=== PATIENT | female | born 1995 | race Caucasian/White ===

== ENCOUNTER 2019-11-14 06:32 | Inpatient (IN) | payer MEDICAID, SELFPAY ==
[2019-11-14 08:22] LABS: HGB 11.6 g/dL (11.2-15.7); MCH 29.6 pg (27.0-33.0); MCHC 34.1 % (32.0-36.0); MCV 86.7 fL (80-95); MPV 11.2 fL (8.0-11.0); Platelet Count 253 10^3/uL (130-400); RBC 3.92 10^6/uL (3.93-5.22); RDW 13.2 % (11.7-14.6); RDW-SD 41.7 fL; WBC 13.92 10^3/uL (4.4-10.8)
[2019-11-14 08:39] LABS: COMMENT (LAB VIEW ONLY) 151.99 mg/dL; PROTEIN 21.7 mg/dL; Prot/Crea Ur Ratio 0.14
[2019-11-14 08:45] LABS: ALT 8 U/L (14-59); AST 13 U/L (15-37); Alkaline Phosphatase 187 U/L (46-116); Anion Gap 13.3 mmol/L (3-11); BUN 5 mg/dL (7-18); Bilirubin, Total 0.5 mg/dL (0.2-1.0); CO2 20.7 mmol/L (21.0-32.0); CREATININE 0.57 mg/dL (0.55-1.02); Calcium 9.6 mg/dL (8.5-10.1); Chloride 102 mmol/L (98-107); Glucose 91 mg/dL (74-106); Potassium 3.4 mmol/L (3.5-5.1); Sodium 136 mmol/L (136-145); Uric Acid 4.5 mg/dL (2.6-6.0)
[2019-11-14] MEDS: Lidocaine 1% Multi-Dose 20 ML VIAL IJ (10:55)
[2019-11-14] MEDS: Oxytocin 10 UNITS/ML VIAL IM (10:55)
[2019-11-14] MEDS: Oxytocin/Normal Saline 30 UNITS/500 ML BAG 499 UNITS IV (12:00)
[2019-11-14] MEDS: Normal Saline Flush 10 ML SYR IVP (12:06)
[2019-11-14] MEDS: Hamamelis Leaf/Glycerin 100 EACH BOX PR (12:06)
[2019-11-14] MEDS: Oxytocin/Normal Saline 30 UNITS/500 ML BAG 95 UNITS IV ×2 (13:32→18:59)
[2019-11-15] MEDS: Oxytocin/Normal Saline 30 UNITS/500 ML BAG 95 UNITS IV (00:05)
[2019-11-15] MEDS: Ibuprofen 600 MG TAB PO ×2 (00:18→09:57)
[2019-11-15] MEDS: Acetaminophen 325 MG TAB 650 MG PO (09:58)
--- NOTE | 2019-11-15 10:03 | W.PM.DS.N ---
Date of service: 11/15/19 Time of Service: 10:03 DS: Diagnosis Discharge Diagnosis (1) Vaginal delivery: Status: Acute Discharge Plan Disposition Patient Disposition: HOME Condition: Good Discharge Details Reason For Visit: RULE OUT LABOR Admit Date/Time: 11/14/19 08:30 Admit Provider: Juliet Galvez Attending Provider: Juliet Galvez Primary Care Provider: None,None Hospital Course Hospital Course: Patient was admitted to the center at 40 weeks 1 day estimated stational age in early active labor. Her blood pressure on admission 140s over 90s. LFTs uric acid were normal. She had a unremarkable liver and a spontaneous vaginal delivery over intact perineum of a viable male weighing 8 pounds 6 ounces with Apgars of 8/9. He will be named King. She experienced mild uterine atony which responded to fundal massage evacuation of clots at the cervix and continuous infusion of IV oxytocin for 18 hours after delivery. She was discharged home on day 1 formula feeding with plans for a telemedicine or in office visit in approximately 2 weeks. Discharge medications will include xswy-cil-ndvsvqs ibuprofen 600 mg every 6 hours. Home Meds and New Rx's Prescriptions: No Action prenat.vits,jordin,ezq-oyku-vrlfh Tablet 1 tab PO DAILY RF: 0 ferrous sulfate 142 mg (45 mg iron) tablet extended release 142 mg PO DAILY RF: 0 Discharge Instructions Additional Instructions: Call [facility] office to make a follow-up appointment with Dr. Galvez for 2 weeks. You may have a telemedicine visit if it is more convenient for you. Take ibuprofen oidh-egt-nlfyhib tablets 600 mg every 6 hours for pain in addition to acetaminophen (Tylenol) 650 mg every 6 hours as needed. Stand Alone Forms: BC Post Vaginal Deliver Activity:: Activity as Tolerated Equipment/Supplies:: No Equipment Needed Diet:: As Tolerated Discharge Orders Discharge Orders: Discharge Order (Routine); Ordered 11/15/19 Ordered By: Juliet Galvez DS: Summary Status at Discharge Functional status at discharge: independent ambulation Overall status at discharge: patient is back to baseline Mental Status: mental status grossly normal Speech and Movement: speech and movement normal Mood: congruent mood Affect: normal affect Exam Psych Mental Status: mental status grossly normal Speech and Movement: speech and movement normal Mood: congruent mood Affect: normal affect DS: Data Vitals/I&O Vitals and I&O: Vital Signs Pain Level 5 11/15/19 09:58 Intake & Output 11/14/19 11/14/19 11/15/19 11:59 23:59 11:59 Intake Total 1000 / 1000 Balance 1000 / 1000 Weight 166 lb Intake: IV 1000 / 1000 [facility] Medical History (Updated 11/15/19 @ 10:04 by Juliet Galvez MD) Vaginal delivery (Acute) 11/14/2019 . M. 8 LB 60Z. King Social History (Updated 11/15/19 @ 10:05 by Juliet Galvez MD) Smoking/Tobacco Use Status: Never Household members: significant other and other Details: Rosey. Number of Children: 1 current occupation: Unemployed History History 1 Para 1 Hx # Term Pregnancies 1 Multiple births Hx # Pregnancies Ectopic pregnancies AB induced Hx Number of Living Children 1 AB spontaneous
[2019-11-15 12:07] LABS: COVID-19 RT-PCR UVMMC Result Negative (Negative)
== END 2019-11-15 14:30 | disposition home or self-care (01) | DRG 806 ==
PROVIDERS: Admitting Provider Obstetrics & Gynecology Gynecology; Visit Provider Obstetrics & Gynecology Gynecology
DX: O77.0 Labor and delivery complicated by meconium in amniotic fluid (principal); O72.1 Other immediate postpartum hemorrhage; Z37.0 Single live birth; Z3A.40 40 weeks gestation of pregnancy; O70.0 First degree perineal laceration during delivery; Z67.40 Type O blood, Rh positive
CPT/HCPCS: 80053; 85027; 86850; 86900; 86901; NC; U0003; 82565; 84156; 84550; G0378; J2590

== ENCOUNTER 2020-12-07 17:01 | Outpatient (REF) | payer MEDICAID, SELFPAY ==
[2020-12-09 14:33] LABS: Chlamydia Result Negative (Negative); GC Result Negative (Negative)
== END 2020-12-07 17:02 | disposition home or self-care (01) ==
LOC: LBN 17:01
PROVIDERS: Visit Provider Obstetrics & Gynecology
DX: Z11.3 Encounter for screening for infections with a predominantly sexual mode of transmission (principal)
CPT/HCPCS: 87491; 87591

== ENCOUNTER 2020-12-08 03:31 | Outpatient (CLI) | payer MEDICAID, SELFPAY ==
[2020-12-09 10:49] LABS: HIV-1/2 Ag & Ab Screen Negative (Negative)
[2020-12-09 11:05] LABS: Hepatitis C Ab w Rflx HCV PCR Negative (Negative)
[2020-12-09 12:18] LABS: Syphilis Serology (RPR) Negative (Negative)
== END 2020-12-08 03:32 | disposition home or self-care (01) ==
LOC: LBO 03:31
PROVIDERS: Visit Provider Obstetrics & Gynecology
DX: Z11.3 Encounter for screening for infections with a predominantly sexual mode of transmission (principal); Z11.4 Encounter for screening for human immunodeficiency virus [HIV]; Z11.59 Encounter for screening for other viral diseases
CPT/HCPCS: 36415; 86803; 87389; 86592

== ENCOUNTER 2021-01-11 08:54 | Emergency (ER) | payer MEDICAID, SELFPAY ==
[2021-01-11 09:02] VITALS: BP 140/85; PULSE 90; RESP 16; TEMP 36.3; O2SAT 100
--- NOTE | 2021-01-11 09:22 | ED.GENADUL_ITS ---
Discharge Plan Disposition Patient Disposition: HOME Condition: Improving Discharge Details Clinical Impression: UTI (urinary tract infection) Primary Care Provider: None,None ED Provider: Hamilton Griffin Home Meds and New Rx's Prescriptions: New sulfamethoxazole-trimethoprim [Bactrim DS] 800-160 mg tablet 1 tab PO BID 7 Days Qty: 14 RF: 0 Continued desogestrel-ethinyl estradiol [Apri] 0.15-0.03 mg tablet 1 tab PO DAILY Qty: 84 RF: 4 Discharge Instructions Instructions: Urinary Tract Infection in Women (ED) Additional Instructions: Please begin antibiotics today. They were electronically sent to the pharmacy at [facility] 1 day off work. Small, frequent sips of fluids to maintain hydration. Return to the ER for any acute concerns. Stand Alone Forms: Work Release Medical Decision Making 25-year-old female who had COVID-19 with a dry cough, body ache, fever and chills 2 weeks ago. Sharon she got better. Now here with days of low back pain, generalized fatigue, sore throat, frontal sinus pain and pressure. She is afebrile, well-appearing with unremarkable exam. Would note mild erythema over tonsillar pillars. Consider UTI, strep pharyngitis, persistent/long-haul COVID-19. Patient underwent urinalysis and rapid strep test. Rapid strep test is negative. Urinalysis positive for leuk esterase and microscopic sample with numerous red blood cells and bacteria, squamous cells also present and contamination not excluded. Given low back pain and probable UTI will treat with a course of antibiotics. Discussed with her that many of her symptoms may be persistent COVID-19 related. She is stable and appropriate for discharge to home. HPI General Mode of arrival: ambulatory . Date/Time Provider Initiated Documentation: 01/11/21 08:56 . Limitations to Documentation: no limitations . Information obtained by: patient . History of Present Illness 25 year old F presents to the emergency department with the chief complaint of Recent Covid, now with a number of concerns, described as moderate, Quality is described as dull, and is localized to the back, left and right. Patient reports no radiation. Patient started experiencing this day(s) and it has been intermittent. No relieving factors improve symptom(s), No exacerbating factors reported . Patient notes cough and other (Sinus pressure, loose stool, mild sore throat, body ache, fatigue); denies shortness of breath and syncope. Related Data Home Medications Medication Instructions Recorded Confirmed desogestrel 0.15 mg-ethinyl 1 tab PO DAILY #84 tab 12/07/20 01/11/21 estradiol 0.03 mg tablet sulfamethoxazole-trimethoprim 1 tab PO BID 7 Days #14 tab 01/11/21 [Bactrim DS] Previous Rx's Medication Instructions Recorded desogestrel 0.15 mg-ethinyl 1 tab PO DAILY #84 tab 12/07/20 estradiol 0.03 mg tablet sulfamethoxazole-trimethoprim 1 tab PO BID 7 Days #14 tab 01/11/21 [Bactrim DS] Allergies Allergy/AdvReac Type Severity Reaction Status Date / Time apple AdvReac Intermediate Headache Unverified 01/11/21 09:08 Pork/Porcine Containing AdvReac Intermediate Diarrhea Unverified 01/11/21 09:08 Products General Stated Complaint: GenMedical SLOAN: 3 Review of Systems Narrative: 8 systems reviewed and otherwise negative. [facility] Medical History Vaginal delivery 11/14/2019 . M. 8 LB 60Z. King Surgical History (Updated 12/07/20 @ 15:07 by Lissa Lima MD) Status post excision of fibroadenoma of breast Family History Mother Depression Social History Smoking/Tobacco Use Status: Never Smoking risk assessment performed?: Yes Alcohol Intake: current Alcohol Intake frequency: holidays/special occasions o nly Drug use: Never Substance use type: does not use Household members: children and other Details: mom and sister Number of Children: 1 current occupation: Unemployed Do you think of yourself as: bisexual What type of physical activity do you participate in: walking Duration: 30-45 minutes/day Frequency: daily Female Reproductive History Menstrual Age of Menarche: 11 Duration of menses: <3 days control method: pills History History 1 Para 1 Hx # Term Pregnancies 1 Multiple births Hx # Pregnancies Ectopic pregnancies AB induced Hx Number of Living Children 1 AB spontaneous Past Pregnancies Del. Date GA/Weeks # Outcome Route Wgt Sex Labor Lgth Anesthes ia Location Prov Complic 11/14/19 40 No Successful vaginal 3798.836 g Male 4 A. O'Shaw other Delivery Date: 11/14/19 Fetus presented in OP position with spontaneous resolution to OA and uncomplicated delivery. Light meconium present in amniotic fluid-- bulb suctioned after delivery. Superficial abrasions with repair with 3-0 vicryl/lidocaine. Increased bleeding noted after placental delivery--treated with oxytocin. Fitch,Rabia Exam Narrative Exam Narrative: GEN: awake, alert, oriented 3. Pleasant, well groomed, interactive. HEAD: Normocephalic, atraumatic ENT: Mucous membranes moist, oropharynx mildly erythematous on the tonsillar pillar right greater than left, tympanic membrane slightly distended, mild frontal sinus tenderness to percussion, External ear exam unremarkable EYES: PERRL, EOMI NECK: Full ROM, no [place], no menigismus CHEST/RESP: Nontender, clear to auscultation bilateral, no wheeze/rhonchi/rales CARDIOVASCULAR: RRR, no murmur, rub brandon. 2+ Rad pulse bilateral Back, nontender, no step-off or deformity. ABDOMEN: Soft, nontender, no mass. +Bowel sounds EXT: Full ROM, no edema, no rash. Hips freely mobile Neuro: Grossly normal neurologic exam, conversant, interactive. Psych: Speech fluent, thoughts congruent, affect normal Course Vital Signs Vital signs: Vital Signs Temperature 36.3 C L 01/11/21 09:02 Pulse 90 01/11/21 09:02 Respiratory Rate 16 01/11/21 09:02 Blood Pressure 140/85 01/11/21 09:02 Pulse Oximetry 100 01/11/21 09:02 Temperature 36.3 C L 01/11/21 09:02 Temperature Source Skin 01/11/21 09:02 Pulse 90 01/11/21 09:02 Respiratory Rate 16 01/11/21 09:02 Respiratory Effort Non-Labored 01/11/21 09:02 Blood Pressure 140/85 01/11/21 09:02 Blood Pressure Position Sitting 01/11/21 09:02 Pulse Oximetry 100 01/11/21 09:02 Oxygen Delivery Method Room Air 01/11/21 09:02 Oxygen Flow Rate 0 01/11/21 09:02 Pain Level 7 01/11/21 09:02
[2021-01-11 09:50] LABS: Bilirubin Negative (Negative); Blood Negative (Negative); Clarity Sl Cloudy (Clear); Glucose Negative (Negative); Ketones Negative (Negative); Leukocyte Esterase Moderate (Negative); Nitrite Negative (Negative); Urobilinogen 0.2 EU/dL (Up TO 0.2)
[2021-01-11 09:57] LABS: Bacteria Many HPF (Negative); C & S Indicated? No/Sq. Contamination; Casts Negative LPF (Negative); Crystals Negative HPF (Negative); Epithelial Cells Many HPF (Negative); Mucus Trace (Negative); RBC 0-2 HPF (0-2); WBC 20-50 HPF (0-5)
== END 2021-01-11 10:06 | disposition home or self-care (01) ==
PROVIDERS: Emergency Provider Emergency Medicine
DX: N39.0 Urinary tract infection, site not specified (principal); J02.9 Acute pharyngitis, unspecified; Z86.16 Personal history of COVID-19; R53.83 Other fatigue
CPT/HCPCS: 81025; 87880; 99283; 81003; 81015; 87081

== ENCOUNTER 2021-02-06 14:28 | Outpatient (REF) | payer MEDICAID, SELFPAY | END 2021-02-06 14:29 | disposition home or self-care (01) | LOC: LBN 14:28 | PROVIDERS: Visit Provider Physician Assistant | DX: R10.84 Generalized abdominal pain (principal) | CPT/HCPCS: 87077; 87086; 87186 ==

== ENCOUNTER 2021-02-06 22:14 | Outpatient (CLI) | payer MEDICAID, SELFPAY ==
--- NOTE | 2021-02-06 | DI.CT_ITS ---
Exam(s) CT RENAL COLIC WO EXAM: CT RENAL COLIC WO CLINICAL HISTORY: FLANK PAIN R10.9. TECHNIQUE: Imaging Protocol: Axial computed tomography images with coronal and sagittal reformatted images were created and reviewed CONTRAST MATERIAL: Intravenous: none Oral: None COMPARISON: No exams were available for comparison FINDINGS: VISUALIZED LUNG BASES: Small area of subtle subpleural infiltrate in the right lower lobe (series 2/i mage 8). ABDOMEN: There is no ascites. LIVER: There are no obvious focal hepatic lesions evident of this noninfused study. GALLBLADDER/BILIARY: No obvious gallbladder pathology. CBD is not dilated. PANCREAS: No evidence of pancreatic mass nor dilatation of the pancreatic duct. SPLEEN: Spleen is not enlarged. No obvious intrasplenic lesions. ADRENALS: There are no significant adrenal masses. KIDNEYS:No cysts evident. No solid renal masses. No calculi nor hydronephrosis. . ABDOMINAL AORTA: Abdominal aorta is not enlarged. LYMPH NODES: There is no retroperitoneal nor paraaortic adenopathy. ABDOMINAL WALL: No evidence of significant anterior abdominal wall nor inguinal hernia. Umbilical or nament noted. GI: There is no evidence of bowel obstruction, free air, nor abscess. PELVIS: LYMPH NODES: There is no intrapelvic nor inguinal adenopathy. GI: No evidence of appendicitis.No evidence of sigmoid diverticulitis. URINARY BLADDER: No calculi nor obvious masses evident REPRODUCTIVE: Uterus and adnexal regions appear age-appropriate. Air column consistent with tampon i s present in the vagina. OSSEOUS: No significant osseous lesions. IMPRESSION: 1. No evidence of urinary tract calculi. No hydronephrosis. No hydroureter. No calculi in the nond istended urinary bladder 2. No other significant findings. 3. Tampon noted in place RADIATION DOSE DELIVERED: 755.16mGy.cm Total DLP DATA REPOSITORY: All CT scans at this facility are submitted to the National Radiology Data Registry (NRDR) Dose Index Registry (DIR) with the [employer] (ACR). RADIATION OPTIMIZATION: All CT scans at this facility use at least one of these dose optimization te chniques: automated exposure control; mA and/or kV adjustment per patient size (includes targeted exa ms where dose is matched to clinical indication); or iterative reconstruction.
== END 2021-02-06 22:34 ==
PROVIDERS: Visit Provider Physician Assistant
DX: R10.84 Generalized abdominal pain (principal)
CPT/HCPCS: 74176

== ENCOUNTER 2021-08-02 14:27 | Emergency (ER) | payer MEDICAID, SELFPAY ==
[2021-08-02 14:31] VITALS: BP 162/100; PULSE 83; RESP 17; TEMP 36.5; O2SAT 98
--- NOTE | 2021-08-02 15:02 | ED.GENADUL_ITS ---
Discharge Plan Disposition Patient Disposition: HOME Condition: Stable Discharge Details Clinical Impression: Pharyngitis Primary Care Provider: None,None ED Provider: Vinnie Rubio Home Meds and New Rx's Prescriptions: Continued desogestrel-ethinyl estradiol [Apri] 0.15-0.03 mg tablet 1 tab PO DAILY Qty: 84 4RF escitalopram oxalate 20 mg tablet 20 mg PO DAILY 0RF Label Comments: TAKE 1/2 TABLET ORALLY DAILY FOR 6 DAYS THEN 1 TABLET DAILY Discharge Instructions Instructions: Pharyngitis (ED) Additional Instructions: Rapid strep is negative. Both strep culture and COVID are pending. I do recommend quarantining until your COVID test has resulted negative hopefully in the next 36-48 hours. Plenty of fluids to avoid dehydration. Ccnn-sga-kwdmqrh Tylenol and/or Motrin as directed for discomfort. Chloraseptic spray as directed for discomfort. Please watch for new or worsening symptoms and return to the ER for any concerns. Lastly, I do recommend outpatient follow-up with your primary care provider if symptoms not resolving in the next 3-5 days. Medical Decision Making 26-year-old female presents for sore throat over the past 2 days, specifically concerned for strep throat. She states that her son at home has a viral syndrome. She has taken ysee-wbg-eafjdxn medication with some relief. Otherwise she has no acute concerns or complaints. Clinically she appears well, nontoxic. She is afebrile, no obvious lymphadenopathy. Airway is patent. Will obtain rapid strep and COVID Rapid strep is negative. Strep culture and COVID pending. Discussed results with patient. We discussed ogjl-akr-merlkwe medications for symptomatic control. Standard discharge and return precautions were provided. Patient understands, is agreeable to this plan, and has no additional questions or concerns upon discharge. This documentation was generated using Siriation system, please disregard any oddities of phrase or misspellings. Medical Records Medical records reviewed: Yes I reviewed the patient's medical records. Lab Data Lab results reviewed: Yes I reviewed the patient's lab results. Labs: 08/02/21 14:36 Pharynx Group A Streptococcus Culture - Pending HPI General Mode of arrival: ambulatory . Date/Time Provider Initiated Documentation: 08/02/21 14:37 . Limitations to Documentation: no limitations . Information obtained by: patient . History of Present Illness 26 year old F presents to the emergency department with the chief complaint of sore throat, described as mild, with intensity rated at 3. Quality is described as aching, and is localized to the neck (throat). Patient reports no radiation. Patient started experiencing this day(s) (2) and it has been constant. improves with No relieving factors improve symptom(s), Patient notes no other symptoms.. Patient did receive the following treatments prior to arrival, NS AID Related Data Home Medications Medication Instructions Recorded Confirmed desogestrel 0.15 mg-ethinyl 1 tab PO DAILY #84 tab 12/07/20 08/02/21 estradiol 0.03 mg tablet (Apri) escitalopram oxalate 20 mg tablet 20 mg PO DAILY 08/02/21 08/02/21 Previous Rx's Medication Instructions Recorded desogestrel 0.15 mg-ethinyl 1 tab PO DAILY #84 tab 12/07/20 estradiol 0.03 mg tablet (Apri) Allergies Allergy/AdvReac Type Severity Reaction Status Date / Time apple AdvReac Intermediate Headache Unverified 08/02/21 14:38 Pork/Porcine Containing AdvReac Intermediate Diarrhea Unverified 08/02/21 14:38 Products General Stated Complaint: GenMedical SLOAN: 4 Review of Systems Constitutional Constitutional: Denies fever(s) and Denies headache(s) ENT Ears, Nose, Mouth, and Throat: Denies headache(s) and Reports sore throat Cardiovascular Cardiovascular: Denies chest pain and Denies dyspnea Respiratory Respiratory: Denies cough and Denies dyspnea Gastrointestinal Gastrointestinal: Denies abdominal pain, Denies nausea and Denies vomiting Integumentary/Breasts Skin/Breast: Denies rash Neurologic Neurologic: Denies headache(s) [facility] All Active Problems (Updated 08/02/21 @ 15:24 by ERICKA Lockett) UTI (urinary tract infection) (Acute) Pharyngitis (Acute) Evaluation regarding contraception options (Acute) Encounter for annual routine gynecological examination (Acute) Routine screening for STI (sexually transmitted infection) (Acute) Status post excision of fibroadenoma of breast (Acute) Contact dermatitis (Acute) Vulvar edema (Acute) Contraception (Acute) Vaginal delivery (Acute) 11/14/2019 . M. 8 LB 60Z. King Family History Mother Depression Social History Smoking/Tobacco Use Status: Never Smoking risk assessment performed?: Yes Alcohol Intake: current Alcohol Intake frequency: holidays/special occasions only Drug use: Never Substance use type: does not use Household members: children and other Details: mom and sister Number of Children: 1 current occupation: Unemployed Do you think of yourself as: bisexual What type of physical activity do you participate in: walking Duration: 30-45 minutes/day Frequency: daily Do you feel safe at home: Yes Female Reproductive History Menstrual Age of Menarche: 11 Duration of menses: <3 days control method: pills History History 1 Para 1 Hx # Term Pregnancies 1 Multiple births Hx # Pregnancies Ectopic pregnancies AB induced Hx Number of Living Children 1 AB spontaneous Past Pregnancies Del. Date GA/Weeks # Outcome Route Wgt Sex Labor Lgth Anesthes ia Location Prov Complic 11/14/19 40 No Successful vaginal 3798.836 g Male 4 A. O'Shaw other Delivery Date: 11/14/19 Last Updated by: Rabia Fitch RN Fetus presented in OP position with spontaneous resolution to OA and uncomplicated delivery. Light meconium present in amniotic fluid--infant bulb suctioned after delivery. Superficial abrasions with repair with 3-0 vicryl/lidocaine. Increased bleeding noted after placental delivery--treated with oxytocin. Exam Const General: cooperative, healthy appearing, comfortable and no acute distress Orientation: alert and awake [facility] Head: normal to inspection, normocephalic and atraumatic Ears: external ears normal, TM's normal bilaterally and EAC's normal General nose exam: external nose normal Face and sinus: normal facial exam Mouth: moist mucous membranes Throat: tonsils normal, uvula midline and posterior oropharynx abnormal erythema (mild) Eyes General: appearance normal, both eyes and all related structures Conjunctivae: conjunctivae normal Neck Neck: normal visual inspection, full ROM, no lymphadenopathy, no meningeal signs, trachea midline, supple and nontender Resp Effort & Inspection: normal respiratory effort and able to speak in complete sentences Auscultation: clear to auscultation bilaterally Cardio Rate: regular rate Rhythm: regular rhythm GI Palpation: soft and nontender Skin General skin exam: no rashes or lesions noted Neuro General: patient alert, patient awake, moves all extremities and no focal motor deficits Sensory Exam: no sensory deficits noted Psych Appearance: grossly normal Mental Status: mental status grossly normal Course Vital Signs Vital signs: Vital Signs Temperature 36.5 C 08/02/21 14:31 Pulse 83 08/02/21 14:31 Respiratory Rate 17 08/02/21 14:31 Blood Pressure 162/100 H 08/02/21 14:31 Pulse Oximetry 98 08/02/21 14:31 Temperature 36.5 C 08/02/21 14:31 Pulse 83 08/02/21 14:31 Respiratory Rate 17 08/02/21 14:31 Respiratory Effort 08/02/21 14:53 Respiratory Depth Normal 08/02/21 14:53 Respiratory Pattern Normal 08/02/21 14:53 Blood Pressure 162/100 H 08/02/21 14:31 Blood Pressure Position Sitting 08/02/21 14:31 Pulse Oximetry 98 08/02/21 14:31 Oxygen Delivery Method Room Air 08/02/21 14:31 Oxygen Flow Rate 0 08/02/21 14:31 Pain Level 6 08/02/21 14:31 Lab/Test Results Lab/Test Results: 08/02/21 14:36 Pharynx Group A Streptococcus Culture - Pending POC Strep Test-BRANDON(Rapid) Start: 08/02/21 14:37 Freq: .Rapid Strep Test Status: Active Protocol: Document 08/02/21 14:46 CL (Rec: 08/02/21 14:46 CL [id number]) Strep test-BRANDON(Rapid)-POC POC-Strep test-BRANDON (Rapid) Negative POC-Strep test-BRANDON (Rapid) Negative PAWSS Have you Been Recently Intoxicated or Drunk Within the Last 30 days?: Yes Have you Ever Experienced Previous Episodes of Alcohol Withdrawal?: No Have you ever Experienced Withdrawal Seizures?: No Have you ever Experienced Delirium Tremens(DT)s?: No Have you ever undergone Alcohol Rehabilitation Treatment (i.e, inpt ot outpatient treatment programs)?: No Have you ever Experienced Blackouts?: No Have you ever Combined Alcohol with other Downers within the last 90 days?: No Have you ever Combined Alcohol with any other Substance of Abuse during the last 90 days?: No Positive Blood Alcohol level on Presentation? [PCS.BAL]: No Evidence of Increased Autonomic Activity (i.e. HR>120, tremor, sweating, agitation, nausea)?: No Result: 1
[2021-08-03 15:11] LABS: COVID-19 RT-PCR UVMMC Result Negative (Negative)
== END 2021-08-02 15:34 | disposition home or self-care (01) ==
LOC: ER 15:30
PROVIDERS: Emergency Provider Physician Assistant
DX: J02.9 Acute pharyngitis, unspecified (principal); Z20.822 Contact with and (suspected) exposure to COVID-19
CPT/HCPCS: 87880; 99282; U0003; 87081

== ENCOUNTER 2021-10-18 16:15 | Outpatient (REF) | payer MEDICAID, SELFPAY ==
[2021-10-18 21:23] LABS: Bilirubin Negative (Negative); Blood Negative (Negative); Clarity Sl Cloudy (Clear); Glucose Negative (Negative); Ketones Negative (Negative); Leukocyte Esterase Large (Negative); Nitrite Negative (Negative); Specific Gravity 1.015 (1.005-1.025); Urobilinogen 0.2 EU/dL (Up TO 0.2)
[2021-10-18 21:35] LABS: Bacteria Rare HPF (Negative); C & S Indicated? C&S Done As Ordered; Crystals Negative HPF (Negative); Epithelial Cells Many HPF (Negative); Mucus Negative (Negative); RBC Negative HPF (0-2); WBC 20-50 HPF (0-5)
== END 2021-10-18 16:16 | disposition home or self-care (01) ==
LOC: LBN 16:15
PROVIDERS: Visit Provider Physician Assistant Medical
DX: R39.89 Other symptoms and signs involving the genitourinary system (principal)
CPT/HCPCS: 81003; 81015; 87086

== ENCOUNTER 2021-10-21 11:03 | Outpatient (REF) | payer MEDICAID, SELFPAY ==
[2021-10-21 16:58] LABS: Abs Immature Grans 0.04 10^3/uL (0.0-0.06); Absolute Basophil Count 0.14 10^3/uL (0.0-0.2); Absolute Eosinophil Count 0.14 10^3/uL (0.0-0.7); Absolute Lymphocyte Count 2.31 10^3/uL (1.2-3.4); Absolute Monocyte Count 0.62 10^3/uL (0.1-0.8); Absolute Neutrophil Count 7.03 10^3/uL (1.2-6.7); Basophils % 1.4; Eosinophils % 1.4; HCT 38.5 % (36.0-46.0); HGB 12.8 g/dL (11.2-15.7); Immature Grans % 0.4; Lymphocytes % 22.5; MCH 28.5 pg (27.0-33.0); MCHC 33.2 % (32.0-36.0); MCV 86 fL (80-95); MPV 10.7 fL (8.0-11.0); Neutrophils % 68.3; Platelet Count 387 10^3/uL (130-400); RBC 4.49 10^6/uL (3.93-5.22); RDW 13.2 % (11.7-14.6); RDW-SD 41.3 fL; WBC 10.28 10^3/uL (4.4-10.8)
[2021-10-21 17:02] LABS: Bilirubin Negative (Negative); Blood Negative (Negative); Clarity Clear (Clear); Glucose Negative (Negative); Ketones Negative (Negative); Leukocyte Esterase Negative (Negative); Nitrite Negative (Negative); Specific Gravity 1.015 (1.005-1.025); Urobilinogen 0.2 EU/dL (Up TO 0.2)
[2021-10-21 17:07] LABS: ALT 25 U/L (14-59); AST 15 U/L (15-37); Albumin 4.1 g/dL (3.4-5.0); Alkaline Phosphatase 57 U/L (46-116); Anion Gap 8.6 mmol/L (3-11); BUN 13 mg/dL (7-18); Bilirubin, Total 0.5 mg/dL (0.2-1.0); CO2 26.4 mmol/L (21.0-32.0); CREATININE 0.7 mg/dL (0.55-1.02); Calcium 9.5 mg/dL (8.5-10.1); Chloride 103 mmol/L (98-107); Glucose 76 mg/dL (74-106); Potassium 4.2 mmol/L (3.5-5.1); Sodium 138 mmol/L (136-145); Total Protein 7.6 g/dL (6.4-8.2)
[2021-10-21 17:16] LABS: Bacteria Negative HPF (Negative); C & S Indicated? C&S Done As Ordered; Crystals Negative HPF (Negative); Epithelial Cells Rare HPF (Negative); Mucus Negative (Negative); RBC Negative HPF (0-2); WBC 0-2 HPF (0-5)
[2021-10-23 13:27] LABS: Chlamydia Result Negative (Negative); GC Result Negative (Negative)
== END 2021-10-21 11:04 | disposition home or self-care (01) ==
LOC: LBN 11:03
PROVIDERS: Visit Provider Physician Assistant Medical
DX: R39.89 Other symptoms and signs involving the genitourinary system (principal); Z11.3 Encounter for screening for infections with a predominantly sexual mode of transmission; N89.8 Other specified noninflammatory disorders of vagina
CPT/HCPCS: 80053; 87491; 87591; 81003; 81015; 85025; 87086; 87480; 87510; 87660

== ENCOUNTER → 2021-10-31 02:41 | Outpatient (CLI) | payer MEDICAID, SELFPAY ==
--- NOTE | 2021-10-31 11:45 | DI.US_ITS ---
Exam(s) US RENAL PELVIC TRANSVAGINAL EXAM: US RENAL PELVIC TRANSVAGINAL CLINICAL HISTORY: FLANK PAIN, R10.9, PELVIC PAIN, R10.2; CVA TENDERNESS BILAT, ? KIDNEY STONE. TECHNIQUE: Ultrasound renal, pelvic, both abdmonal and tranvaginal was performed using standard prot ocol. COMPARISON: CT CT RENAL COLIC WO from 02/06/2021 FINDINGS: RENAL: Renal size in cm: Right: 11.2 left: 11.9 Echogenicity: Normal. Hydronephrosis: No. Cyst or mass: No. Nephrolithiasis: No. Other findings: None. Bladder:Normal. Ureteral jets: Right: Visualized and unremarkable. Left: Visualized and unremarkable. Prevoid vol:152 cc Postvoid vol:0 cc Color: Symmetric and uniform flow to both kidneys. PELVIC: UTERUS: Position: Anteverted. Size: 8.2 long by 4.2 AP by 5.8 transverse cm Endometrium: 0.7 cm. Normal for patient's menstrual status. Myometrium: Unremarkable. Cervix: Unremarkable. OVARIES: Right: 3 x 2.6 x 1.8 cm Cyst or mass: No suspicious cystic or solid masses. Left: 2.9 x 1.4 x 2.7 cm Cyst or mass: No suspicious cystic or solid masses. DOPPLER: Color: Symmetric and uniform flow to both ovaries. No hyperemia. CUL-DE-SAC: Free fluid: None. IMPRESSION: 1. Normal sonographic appearance of the kidneys. 2. Normal-appearing uterus with endometrial stripe within normal limits. 3. Unremarkable bilateral ovaries. DATA REPOSITORY:
== END ==
PROVIDERS: Visit Provider Physician Assistant Medical
DX: R10.2 Pelvic and perineal pain (principal)
CPT/HCPCS: 76770; 76830; 76856

== ENCOUNTER 2022-02-07 17:11 | Outpatient (CLI) | payer MEDICAID, SELFPAY ==
--- NOTE | 2022-02-07 17:00 | RT.EKG_ITS ---
APPROVED REPORT Exam: Resting ECG Reason for Exam: chest discomfort Patient Location: O HR:83 bpm ECG Measurements Heart Rate 83 AXIS MS 101 P 18 QRSd 74 QRS 62 QT 369 T 27 QTc 434 Conclusion Sinus rhythm...normal P axis, V-rate 50- 99 Short MS interval...MS <110mS
== END 2022-02-07 17:12 | disposition home or self-care (01) ==
LOC: DI.CM 17:11
PROVIDERS: Visit Provider Nurse Practitioner Family
DX: R07.89 Other chest pain (principal)
CPT/HCPCS: 93010

== ENCOUNTER → 2022-02-07 17:52 | Outpatient (CLI) | payer MEDICAID, SELFPAY ==
--- NOTE | 2022-02-07 18:00 | DI.RAD_ITS ---
Exam(s) XR SHOULDER RT COMPLETE 2+V EXAM: XR SHOULDER RT COMPLETE 2+V CLINICAL HISTORY: evaluate etiology,RT SHOULDER PAIN, M25.511 TECHNIQUE: COMPARISON: No exams were available for comparison FINDINGS: Four views were obtained. Cartilaginous joint space of the glenohumeral joint is fairly well [place]. There are mild hypertrophic degenerative changes of the AC joint. No other bony or soft tissue abnormality seen . IMPRESSION: RADIATION DOSE DELIVERED: Total DLP
--- NOTE | 2022-02-07 18:38 | DI.VRAD_ITS ---
PROCEDURE INFORMATION: Exam: XR Right Shoulder Exam date and time: 02/07/2022 18:11 Age: 26 years old Clinical indication: Other: Eval etiology TECHNIQUE: Imaging protocol: Radiologic exam of the Right shoulder. Views: 2 or more views. COMPARISON: No relevant prior studies available. FINDINGS: Bones/joints: No acute fracture or subluxation. No significant degenerative changes are seen. Os acromiale, normal variant. Soft tissues: Normal. IMPRESSION: Normal. Dictated and Authenticated by: Holley Zamudio MD. Ordering:EMMANUEL Garzon MD
== END ==
PROVIDERS: Visit Provider Nurse Practitioner Family
DX: M19.011 Primary osteoarthritis, right shoulder (principal)
CPT/HCPCS: 73030

== ENCOUNTER 2023-03-13 07:29 | Emergency (ER) | payer MEDICAID, SELFPAY ==
[2023-03-13 07:32] VITALS: BP 161/89; PULSE 91; RESP 18; TEMP 36.5; O2SAT 100
--- NOTE | 2023-03-13 08:00 | DI.RAD_ITS ---
Exam(s) XR KNEE RT 3V AP,LAT,RANDA EXAM: XR KNEE RT 3V AP,LAT,RANDA CLINICAL HISTORY: fall, knee pain, effusion. TECHNIQUE: 2D digital imaging was performed. COMPARISON: No exams were available for comparison FINDINGS: No evidence of fracture but there is a significant joint effusion evident signifying internal derange ment. No joint space narrowing. No degenerative changes. No osseous lesions. Bone density normal. IMPRESSION: No osseous findings but there is a significant size joint effusion in the knee which may signify an i nternal derangement. Appropriate follow-up recommended. DATA REPOSITORY: RADIATION DOSE DELIVERED:
--- NOTE | 2023-03-13 08:16 | ED.GENADUL_ITS ---
Discharge Plan Disposition Patient Disposition: Home Condition: Stable Discharge Details Chief Complaint: Orthopedic Clinical Impression: Joint effusion of knee Primary Care Provider: Unknown,Unknown ED Provider: John Moscoso Home Meds and New Rx's Prescriptions: No Action lisdexamfetamine [Vyvanse] 10 mg capsule 30 mg PO DAILY Discharge Instructions Instructions: Swollen Knee Joint (ED), Knee Immobilizer (ED) Additional Instructions: Please continue with ice rest elevation ibuprofen and/or acetaminophen for pain and swelling. Follow-up closely with orthopedic team. Please return to the emergency department for any worsening symptoms Medical Decision Making 27-year-old female presents 1 day after mechanical slip and fall, right knee pain, moderate right knee effusion, range of motion passive and active intact, strength and sensation intact, DP pulse intact, soft compartments, no laxity to joints, ambulatory without assistance, consider contusion versus patellar dislocation with spontaneous relocation versus partial ACL versus PCL injury given sensation of instability as if the knee wanted to fall backwards versus meniscal tear given clicking popping and effusion lower suspicion for dislocation or fracture. Will obtain screening x-ray. IM anti-inflammatory. Will place in knee immobilizer and provide orthopedic follow-up given effusion and sensation of instability. Patient would likely benefit from outpatient MRI unless signs and symptoms resolve spontaneously. 9: 17 patient placed in knee immobilizer. Large effusion seen on x-ray. Have placed patient on list for close orthopedic follow-up given effusion and sensation of instability. HPI General Date/Time Provider Initiated Documentation: 03/13/23 07:52 . HPI Narrative: 27-year-old female presents 1 day after slip and fall on the ice, her right knee splayed out to her side and behind her, felt a pop, has noticed swelling over the last day. Has been able to ambulate with some discomfort initially was feeling some popping and clicking now that has subsided although she has the sensation that the knee feels slightly unstable as if it wants to bend backwards. Related Data Home Medications Medication Instructions Recorded Confirmed lisdexamfetamine 10 mg capsule 30 mg PO DAILY 03/13/23 03/13/23 (Vyvanse) Allergies Allergy/AdvReac Type Severity Reaction Status Date / Time apple AdvReac Intermediate Headache Unverified 03/13/23 07:39 Pork/Porcine Containing AdvReac Intermediate Diarrhea Unverified 03/13/23 07:39 Products General Stated Complaint: Orthopedic SLOAN: 4 Review of Systems Narrative: Review of Systems Constitutional: negative Eyes: negative ENT: negative Cardiovascular: negative Respiratory: negative Gastrointestinal: negative : negative Musculoskeletal: Knee pain Skin: negative Neurologic: negative Psych: negative PFSH All Active Problems (Updated 03/13/23 @ 09:23 by John Moscoso MD) Joint effusion of knee (Acute) UTI (urinary tract infection) (Acute) Evaluation regarding contraception options (Acute) Encounter for annual routine gynecological examination (Acute) Routine screening for STI (sexually transmitted infection) (Acute) Status post excision of fibroadenoma of breast (Acute) Contact dermatitis (Acute) Vulvar edema (Acute) Contraception (Acute) Vaginal delivery (Acute) 11/14/2019 . M. 8 LB 60Z. [place] Family History Mother Depression Social History Smoking/Tobacco Use Status: Never Smoking risk assessment performed?: Yes Alcohol Intake: current Alcohol Intake frequency: holidays/special occasions only Drug use: Never Substance use type: does not use Household members: children and other Details: mom and sister Number of Children: 1 current occupation: Unemployed Do you think of yourself as: bisexual What type of physical activity do you participate in: walking Duration: 30-45 minutes/day Frequency: daily Do you feel safe at home: Yes Do you feel safe in your relationship?: Yes Female Reproductive History Menstrual Age of Menarche: 11 Duration of menses: <3 days control method: pills History History 2 Para 2 Hx # Term Pregnancies 1 Multiple births Hx # Pregnancies Ectopic pregnancies AB induced Hx Number of Living Children 2 AB spontaneous Past Pregnancies Del. Date GA/Weeks # Preg Succ Route Wgt Sex Labor Lgth Anesth esia Location Prov Complic 11/14/19 40 No vaginal 3798.836 g Male 4 A. [facility] other Delivery Date: 11/14/19 Last Updated by: Rabia Fitch RN Fetus presented in OP position with spontaneous resolution to OA and uncomplicated delivery. Light meconium present in amniotic fluid-- bulb suctioned after delivery. Superficial abrasions with repair with 3-0 vicryl/lidocaine. Increased bleeding noted after placental delivery--treated with oxytocin. Exam Narrative Exam Narrative: Physical Examination General: alert, awake, cooperative, resting comfortably, no acute distress HEENT: normocephalic, atraumatic; PERRL, EOM intact, conjunctiva normal; no nasal discharge; moist mucous membranes, oral and pharyngeal mucosa normal, tolerating secretions Neck: supple, trachea midline; full ROM Chest: normal to inspection Respiratory: normal respiratory effort, speaking in full sentences Skin: no lesions, rashes or trauma appreciated Neuro: AAOx3, normal speech, moving all extremities Extremities: Right lower extremity: Moderate effusion to knee joint, patella in place, both passive and active range of motion of knee intact, no laxity, mostly tender around anterior medial region of knee, no abrasions lacerations or deformity noted, warm well-perfused extremity, DP pulse intact sensate; patient ambulatory without assistance Psych: Appropriate mood and affect Course Vital Signs Vital signs: Vital Signs Temperature 36.5 C 03/13/23 07:32 Pulse 91 H 03/13/23 07:32 Respiratory Rate 18 03/13/23 07:32 Blood Pressure 161/89 H 03/13/23 07:32 Pulse Oximetry 100 03/13/23 07:32 Temperature 36.5 C 03/13/23 07:32 Temperature Source Skin 03/13/23 07:32 Pulse 91 H 03/13/23 07:32 Respiratory Rate 18 03/13/23 07:32 Respiratory Effort Normal 03/13/23 07:36 Blood Pressure 161/89 H 03/13/23 07:32 Blood Pressure Position Sitting 03/13/23 07:32 Pulse Oximetry 100 03/13/23 07:32 Oxygen Delivery Method Room Air 03/13/23 07:32 Oxygen Flow Rate 0 03/13/23 07:32 Pain Level 3 03/13/23 07:32
[2023-03-13] MEDS: Ketorolac 15 MG/ML VIAL IM (08:25)
== END 2023-03-13 09:32 | disposition home or self-care (01) ==
PROVIDERS: Emergency Provider Emergency Medicine
DX: M25.561 Pain in right knee (principal); M25.461 Effusion, right knee; W00.0XXA Fall on same level due to ice and snow, initial encounter
CPT/HCPCS: 29530; 73562; 81025; 99283; J1885

== ENCOUNTER → 2023-04-04 00:26 | Outpatient (CLI) | payer MEDICAID, SELFPAY ==
--- NOTE | 2023-04-04 14:40 | DI.MRI_ITS ---
Exam(s) MR LOWER JOINT RT WO EXAM: MR LOWER JOINT RT WO CLINICAL HISTORY: R KNEE PAIN,INTERNAL DERANGEMENT,M23.91. TECHNIQUE: Multiplanar multisequence MRI was performed. COMPARISON: CR XR KNEE RT 3V AP,LAT,RANDA from 03/13/2023 FINDINGS: BONES: Contusion of the lateral femoral condyle and medial aspect of the patella. JOINTS: A small joint effusion is present. Articular cartilage: Patellofemoral joint: Edema and focal large osteochondral lesion at the patella r apex and medial facet, measuring roughly 15 millimeters. Slight displacement of fragment. Patella mildly laterally subluxed.. Medial femoral tibial joint: Articular cartilage is unremarkable. Lateral femoral tibial joint: Articular cartilage is unremarkable. TENDONS: Extensor mechanism: Unremarkable. Medial retinaculum: Some edema near patella. Lateral retinaculum: Unremarkable. Popliteus: Unremarkable. MUSCLES: Unremarkable. Tiny Mcbride's cyst. LIGAMENTS: Anterior Cruciate: Unremarkable. Posterior Cruciate: Unremarkable. Medial Collateral:Unremarkable. Lateral Collateral: Unremarkable. IMPRESSION: Contusion of the medial aspect of the patella with large osteochondral defect at the infero medial po rtion. Probable partial tear of the medial retinaculum. Contusion of the lateral femoral condyle. DATA REPOSITORY:
== END ==
PROVIDERS: Visit Provider Student in an Organized Health Care Education/Training Program
DX: S82.034A Nondisplaced transverse fracture of right patella, initial encounter for closed fracture; X58.XXXA Exposure to other specified factors, initial encounter
CPT/HCPCS: 73721

== ENCOUNTER 2023-04-10 10:43 | Outpatient (CLI) | payer MEDICAID, SELFPAY ==
--- NOTE | 2023-04-10 09:30 | DI.RAD_ITS ---
Exam(s) XR KNEE RT 1V EXAM: XR KNEE RT 1V CLINICAL HISTORY: pain. TECHNIQUE: 2D digital imaging was performed. Single patellar view. COMPARISON: CR XR KNEE RT 3V AP,LAT,RANDA from 03/13/2023 MR MR LOWER JOINT RT WO from 04/04/2023 FINDINGS: Small fracture fragment seen at the medial articular aspect of the patella. Additional small fractur e fragment seen at the apex, at the articular aspect. Joint spaces maintained. IMPRESSION: Two fracture fragments noted at the articular aspect of the patella, medially and at the apex. DATA REPOSITORY: RADIATION DOSE DELIVERED:
== END 2023-04-10 10:44 | disposition home or self-care (01) ==
LOC: DIORS 10:44
PROVIDERS: Visit Provider Physician Assistant
DX: S82.034A Nondisplaced transverse fracture of right patella, initial encounter for closed fracture; X58.XXXA Exposure to other specified factors, initial encounter
CPT/HCPCS: 73560

== ENCOUNTER 2024-01-16 17:26 | Outpatient (REF) | payer BC, SELFPAY ==
[2024-01-16 23:39] LABS: HIV-1/2 Ag & Ab Screen Negative (Negative)
[2024-01-17 08:51] LABS: Hepatitis B Surface Ag Negative (Negative)
[2024-01-17 09:25] LABS: Hepatitis C Ab w Rflx HCV PCR Negative (Negative)
[2024-01-17 12:23] LABS: HSV Type 1 Ab, IgG Positive (Negative); HSV Type 2 Ab, IgG Negative (Negative)
[2024-01-17 12:38] LABS: Syphilis Serology (RPR) Negative (Negative)
[2024-01-20 12:50] LABS: GC Result Negative (Negative)
[2024-01-20 14:17] LABS: Chlamydia Result Positive (Negative)
== END 2024-01-16 17:27 | disposition home or self-care (01) ==
LOC: NCHCN 17:26
PROVIDERS: Visit Provider Family Medicine
DX: Z11.3 Encounter for screening for infections with a predominantly sexual mode of transmission (principal)
CPT/HCPCS: 86803; 87340; 87389; 87491; 87591; 86592; 86695; 86696

== ENCOUNTER 2024-02-06 09:40 | Outpatient (REF) | payer BC, SELFPAY ==
--- NOTE | 2024-02-06 09:30 | PAPFT_PTH ---
PATIENT: Emerald Velasquez LOC: [facility] U#:[id number] AGE/SX: 28/F ROOM: RE02/06/[address]: Maci Sandoval DO : 1995 BED: DIS: 02/06/2024 SPEC #: [id number] RECD: 02/06/24 12:08 STATUS: LEVI REQ #: [id number] KELLI: 02/06/24 09:[address]: Maci Sandoval DEPT: [facility] Cytology RECD BY: Meme Gilbert ENTERED: 02/06/24 12:08 SP TYPE: PAPFT OTHR DR: Unknown,Unknown Tissues: 1 - CX/ENDOCX FOR PAP SMEARS Procedures: PAP THIN PREP/UVM Screening HPV DNA PROBE Comments: [id number] (HPV 16 & 18/45) (CHLAMYDIA/GC)
[2024-02-07 12:37] LABS: Chlamydia Result Negative (Negative); GC Result Negative (Negative)
== END 2024-02-06 09:41 | disposition home or self-care (01) ==
LOC: LBN 09:40
PROVIDERS: Visit Provider Obstetrics & Gynecology
DX: Z01.419 Encounter for gynecological examination (general) (routine) without abnormal findings (principal); R10.2 Pelvic and perineal pain; N94.6 Dysmenorrhea, unspecified; A74.9 Chlamydial infection, unspecified
CPT/HCPCS: 87491; 87591; 88142; 87624

== ENCOUNTER 2024-02-14 10:24 | Outpatient (REF) | payer SELFPAY ==
[2024-02-17 12:37] LABS: Chlamydia Result Negative (Negative); GC Result Negative (Negative)
== END 2024-02-14 10:25 | disposition home or self-care (01) ==
LOC: NCHCN 10:24
PROVIDERS: PCP Family Medicine; Visit Provider Family Medicine
DX: Z11.3 Encounter for screening for infections with a predominantly sexual mode of transmission (principal)
CPT/HCPCS: 87491; 87591

== ENCOUNTER 2024-04-08 11:15 | Emergency (ER) | payer BC, SELFPAY ==
[2024-04-08 11:16] VITALS: BP 140/86; PULSE 83; RESP 14; TEMP 36.6; O2SAT 98
--- NOTE | 2024-04-08 11:30 | DI.RAD_ITS ---
Exam(s) XR KNEE LT 3V AP,LAT,RANDA EXAM: XR KNEE LT 3V AP,LAT,RANDA CLINICAL HISTORY: L knee pain; slip fall. TECHNIQUE: 2D digital imaging was performed. COMPARISON: CR XR KNEE RT 1V from 04/10/2023 FINDINGS: 3 views No evidence of acute fracture nor prominent joint effusion. There appears to be a small amount of in creased joint fluid. Tibial plateau unremarkable. No joint space narrowing. Bone density normal. No osseous lesions. IMPRESSION: No acute osseous findings. Small amount of increased joint fluid noted. DATA REPOSITORY: RADIATION DOSE DELIVERED:
--- NOTE | 2024-04-08 11:35 | ED.GENADUL_ITS ---
Discharge Plan Disposition Patient Disposition: Home Condition: Stable Discharge Details Clinical Impression: Internal derangement of left knee Primary Care Provider: Rabia Goetz ED Provider: Sergio Ochoa Home Meds and New Rx's Prescriptions: Continued naproxen 500 mg tablet 500 mg PO BID acetaminophen 325 mg tablet 325 mg PO ONCE PRN lisdexamfetamine [Vyvanse] 10 mg capsule 30 mg PO DAILY lisdexamfetamine 40 mg capsule 40 mg PO DAILY Patient Comments: TAKE ONE CAPSULE BY MOUTH EVERY MORNING FOR ATTENTION Discharge Instructions Instructions: Internal Derangement of the Knee Additional Instructions: You were seen in the emergency department for your likely MCL injury to your left knee. You have an orthopedic appointment coming up, I suggest you discuss with your orthopedist at that time to schedule an MRI. In the meantime remain in your knee immobilizer, you may toe-touch with crutches, please rest, ice, compress and elevate the knee often. Please use therapeutic dosing of Tylenol (acetamenophen) & Advil (ibuprofen) in an alternating fashion as follows: Take 1000mg of Tylenol every 6 hours without missing doses- that is 4 times per day. [place] in between the Tylenol dosings, take 400-600mg of Advil also on a 6 hour schedule, that is also 4 times per day. The daily maximum dosing of Tylenol is 4000mg, and the daily maximum dosing of Advil is 2400mg. This is safe to do for weeks. Please note that some common cold medications & prescription pain medications may contain acetamenophen and you need to read OTC drug labels and factor that in to maximum daily dosings. Please return to the emergency department for any signs of neurovascular compromise distal to the left knee or any other emergent concerns Referrals: Rabia Goetz [Primary Care Provider] - Discharge Data Discharge Date/Time-TO BE ENTERED AT DEPARTURE: 04/08/24 13:44 HPI General Date/Time Provider Initiated Documentation: 04/08/24 11:35 . HPI Narrative: 28 year-old female presents to ED today by POV/ambulating with a chief complaint of L knee injury early this morning, pain is behind her kneecap and medial. Quality described as just feels pressure, no radiation to complete instability, gross swelling, numbness/tingling, distally, bruising. Severity is described as moderate. Palliating factors include nothing specific attempted. Provoking factors include ambulating. Events leading up to the incident/Associated Symptoms: Patient endorses history of R knee surgery last year. Patient not anticoagulated. Related Data Home Medications ?Medication ?Instructions ?Recorded ?Confirmed lisdexamfetamine 10 mg capsule 30 mg PO DAILY 03/13/23 04/08/24 (Vyvanse) acetaminophen 325 mg tablet 325 mg PO ONCE PRN 04/10/23 04/08/24 naproxen 500 mg tablet 500 mg PO BID 04/10/23 04/08/24 lisdexamfetamine 40 mg capsule 40 mg PO DAILY 04/08/24 04/08/24 Allergies Allergy/AdvReac Type Severity Reaction Status Date / Time atomoxetine (From Strattera) Allergy Mild Unknown Verified 04/08/24 11:23 apple AdvReac Intermediate Headache Verified 04/08/24 11:23 Pork/Porcine Containing AdvReac Intermediate Diarrhea Verified 04/08/24 11:23 Products General Stated Complaint: Orthopedic SLOAN: 4 Review of Systems All systems reviewed & are unremarkable except as noted in HPI and below Exam Narrative Exam Narrative: GENERAL APPEARANCE: Well-nourished, non-toxic, awake and alert, atraumatic, no acute distress. SKIN: Warm, pink, dry, intact, without rashes/lesions/ulcerations. HEAD: Normocephalic, atraumatic, normal hair distribution for gender/age. EYES: Normal conjunctiva, no exudates on lids/lashes. ENT: Nares patent, no circumoral cyanosis, no facial swelling NECK: Supple, trachea midline, painless cervical ROM. LUNGS/CHEST: Non-labored respirations, normal A/P diameter, symmetrical expansion, no chest wall deformity HEART (CV/PV): No peripheral edema, no JVD. ABDOMEN: Soft, non-distended, no guarding. MSK: Normal ROM, no swelling/deformity to bilateral UEs or LEs, moving all extremities without weakness, no cyanosis, spine midline without tenderness, normal curvature, tenderness at left MCL insertion, no ligamentous laxity with varus valgus forces, anterior drawer test and Edda's test negative, Fatimah negative, patella mobile without crepitus, tib-fib and femur stable NEURO: Mental Status AAOx4 - alert to person, place, time, events No facial droop, no forehead involvement. Motor: No focal weakness - strength 5/5 in bilateral UEs and LEs, proximal and distal, symmetric. Sensory: sensation intact to light touch globally. Gait normal: patient ambulated without ataxia into ED room. PSYCH: euthymic, cooperative, pleasant, appropriate speech Course Vital Signs Vital signs: Vital Signs Temperature 36.6 C 04/08/24 11:16 Pulse 83 04/08/24 11:16 Respiratory Rate 14 04/08/24 11:16 Blood Pressure 140/86 04/08/24 11:16 Pulse Oximetry 98 04/08/24 11:16 Temperature 36.6 C 04/08/24 11:16 Temperature Source Oral 04/08/24 11:16 Pulse 83 04/08/24 11:16 Respiratory Rate 14 04/08/24 11:16 Blood Pressure 140/86 04/08/24 11:16 Blood Pressure Position Sitting 04/08/24 11:16 Pulse Oximetry 98 04/08/24 11:16 Oxygen Delivery Method Room Air 04/08/24 11:16 Oxygen Flow Rate 0 04/08/24 11:16 Pain Level 6 04/08/24 11:16 Medical Decision Making This dictation utilizes [id number] dictation software and may contain unedited grammatical errors. 28 year-old female presents to ED today by POV/ambulating with a chief complaint of L knee injury early this morning, pain is behind her kneecap and medial. Quality described as just feels pressure, no radiation to complete instability, gross swelling, numbness/tingling, distally, bruising. Severity is described as moderate. Palliating factors include nothing specific attempted. Provoking factors include ambulating. Events leading up to the incident/Associated Symptoms: Patient endorses history of R knee surgery last year. Patients' medical history: Osteochondral defect of patella. Family and social history: Noncontributory. Pertinent exam findings / vital signs include tenderness at the MCL insertion without overt ligamentous laxity, Fatimah negative, anterior drawer/Edda negative, patella mobile, no crepitus, no gross swelling. Differential / pathologies of concern include ligament injury, less likely fracture, contusion, sprain/strain. Diagnostic studies of: -XR left knee-small effusion. Interventions of: -Hinged knee brace provided. ED Course/Assessment/Plan: 28-year-old female presents with slip and fall this morning, has tenderness at the MCL insertion and feels unstable somewhat here, has similar injury to contralateral knee last year, recommend RICE therapy and therapeutic dosing Tylenol and ibuprofen and following up with orthopedics for likely MRI at some point, strict return criteria for any signs of neurovascular compromise. Findings not consistent with fracture or neurovascular compromise. Disposition of internal derangement of left knee. Patient verbalized understanding of the plan and return to ED criteria and engaged in shared decision making. Medical Records Medical records reviewed: Yes I reviewed the patient's medical records. Imaging Data Radiologic Study: Attestation: I personally reviewed and interpreted this imaging study as follows: Imaging: X-Ray Radiologist's impression: EXAM: XR KNEE LT 3V AP,LAT,RANDA CLINICAL HISTORY: L knee pain; slip fall. TECHNIQUE: 2D digital imaging was performed. COMPARISON: CR XR KNEE RT 1V from 04/10/2023 FINDINGS: 3 views No evidence of acute fracture nor prominent joint effusion. There appears to be a small amount of increased joint fluid. Tibial plateau unremarkable. No joint space narrowing. Bone density normal. No osseous lesions. IMPRESSION: No acute osseous findings. Small amount of increased joint fluid noted. Quality:SDOH Health Related Social Needs: No Data to Display PFSH All Active Problems (Updated 04/08/24 @ 12:58 by ERICKA Mackay) Internal derangement of left knee (Acute) Chlamydia infection (Acute) Dysmenorrhea (Acute) Pelvic pain (Acute) Well woman exam with routine gynecological exam (Acute) Contusion of right patella (Acute) Osteochondral defect of patella (Acute) Internal derangement of right knee (Acute) UTI (urinary tract infection) (Acute) Evaluation regarding contraception options (Acute) Encounter for annual routine gynecological examination (Acute) Routine screening for STI (sexually transmitted infection) (Acute) Status post excision of fibroadenoma of breast (Acute) Contact dermatitis (Acute) Vulvar edema (Acute) Contraception (Acute) Vaginal delivery (Acute) 11/14/2019 . M. 8 LB 60Z. [place] Family History Mother Depression Social History Smoking/Tobacco Use Status: Never Second Hand Exposure: No Smoking risk assessment performed?: Yes Alcohol Intake: current Alcohol Intake frequency: holidays/special occasions only Drug use: Never Substance use type: does not use Household members: children and other Details: mom and sister Number of Children: 1 current occupation: EMT Sexually active: Yes Do you think of yourself as: bisexual Current gender identity: female What type of physical activity do you participate in: walking Duration: 60-90 minutes/day Frequency: daily Seatbelt use: always Helmet use: Yes Do you feel safe at home: Yes Do you feel safe in your relationship?: Yes Female Reproductive History Menstrual Age of Menarche: 11 Duration of menses: <3 days control method: pills History History 2 Para 2 Hx # Term Pregnancies 1 Multiple births Hx # Pregnancies Ectopic pregnancies AB induced Hx Number of Living Children 2 AB spontaneous Past Pregnancies Del. Date GA/Weeks # Preg Succ Route Wgt Sex Labor Lgth Anesth esia Location [facility] 11/14/19 40 No vaginal 3798.836 g Male 4 A. [facility] '[facility] other Delivery Date: 11/14/19 Last Updated by: Rabia Fitch RN Fetus presented in OP position with spontaneous resolution to OA and uncomplicated delivery. Light meconium present in amniotic fluid-- bulb suctioned after delivery. Superficial abrasions with repair with 3-0 vicryl /lidocaine. Increased bleeding noted after placental delivery--treated with oxytocin. PAWSS Have you Been Recently Intoxicated or Drunk Within the Last 30 days?: No Have you Ever Experienced Previous Episodes of Alcohol Withdrawal?: No Have you ever Experienced Withdrawal Seizures?: No Have you ever Experienced Delirium Tremens(DT)s?: No Have you ever undergone Alcohol Rehabilitation Treatment (i.e, inpt ot outpatient treatment programs)?: No Have you ever Experienced Blackouts?: No Have you ever Combined Alcohol with other Downers within the last 90 days?: No Have you ever Combined Alcohol with any other Substance of Abuse during the last 90 days?: No Positive Blood Alcohol level on Presentation? [PCS.BAL]: No Evidence of Increased Autonomic Activity (i.e. HR>120, tremor, sweating, agitation, nausea)?: No Result: 0
[2024-04-08] MEDS: Acetaminophen 500 MG TAB 1000 MG PO (11:52)
[2024-04-08] MEDS: Ibuprofen 400 MG TAB PO (11:52)
[2024-04-08 12:41] VITALS: BP 129/88; PULSE 80; RESP 12; O2SAT 98
[2024-04-08 13:22] VITALS: BP 136/94; PULSE 73; RESP 16; O2SAT 98
== END 2024-04-08 13:44 | disposition home or self-care (01) ==
PROVIDERS: Emergency Provider Physician Assistant; PCP Family Medicine
DX: M23.92 Unspecified internal derangement of left knee (principal)
CPT/HCPCS: 73562; 99283